=== PATIENT | female | born 1990 | race Caucasian/White ===

== ENCOUNTER 2016-11-27 12:47 | Emergency (ER) | payer OTHER ==
--- NOTE | ~2016-11-27 | CR21 ---
[facility] A Service of [facility] RADIOLOGY TEXT RESULTS PATIENT: YOVANA LOCKHART LOCATION: [facility] : [birth year] UNIT #: [id number] AGE: [address]: Kyle Lamb MD SEX: F ORDER DR: [id number] [facility] [address] [place], [place] [address] [id number] E MR#: [id number] Acc #: [id number] NAME: YOVANA LOCKHART : 1990 SEX: F STUDY DATE/TIME: 11/27/2016 12:17 UNIT: [facility] ROOM: STUDY DESCRIPTION: CR Ankle Min 3 Views Rt Attending Physician: Kyle Lamb M.D. Ordering Physician: Kyle Lamb M.D. Primary Care Physician: [facility], [facility] MEDICAL IMAGING REPORT This report is preliminary unless electronic signature is present EXAM Right ankle. HISTORY Twisting injury today with ankle pain. TECHNIQUE 3 views of the ankle were obtained. FINDINGS No definite fractures are seen. On the oblique view, there is a small barbra of calcium just below the distal tip of the fibula. This could reflect a small avulsion fracture. It could simply reflect a chronic ligamentous calcification from previous trauma. The ankle mortise is symmetric, and the dome of the talus is intact. IMPRESSION No definite acute fractures are seen. There is a small soft tissue calcification just under the tip of the fibula, seen on the oblique view only. It could potentially represent a small avulsion fracture versus chronic ligamentous calcification. Dictated by... Lane Yates M.D. THIS IS AN ELECTRONICALLY VERIFIED REPORT Lane Yates M.D. at 11/27/2016 6:01 PM RADHA/mingo TD: 11/27/2016 14:11 [facility] A Service of [facility] RADIOLOGY TEXT RESULTS PATIENT: YOVANA LOCKHART LOCATION: [facility] : [birth year] UNIT #: [id number] AGE: [address]: Kyle Lamb MD SEX: F ORDER DR: JOB #: [id number] MEDICAL IMAGING REPORT Page 1 of 1 COPY
--- NOTE | ~2016-11-27 | CR127 ---
[facility] A Service of [facility] RADIOLOGY TEXT RESULTS PATIENT: YOVANA LOCKHART LOCATION: [facility] : [birth year] UNIT #: [id number] AGE: [address]: Kyle Lamb MD SEX: F ORDER DR: [id number] [facility] [address] [place], [place] [address] [id number] E MR#: [id number] Acc #: [id number] NAME: YOVANA LOCKHART : 1990 SEX: F STUDY DATE/TIME: 11/27/2016 12:17 UNIT: [facility] ROOM: STUDY DESCRIPTION: CR Foot Complete Min 3 View Rt Attending Physician: Kyle Lamb M.D. Ordering Physician: Kyle Lamb M.D. Primary Care Physician: [facility], [facility] MEDICAL IMAGING REPORT This report is preliminary unless electronic signature is present EXAM Right foot HISTORY Foot pain, twisting injury earlier today. TECHNIQUE 3 views of the foot were obtained. FINDINGS The tarsal, metatarsal, and phalangeal elements are all anatomically normal in position and alignment. There are no articular defects. No fractures or radiopaque foreign bodies in the soft tissues are apparent. IMPRESSION Normal foot. Dictated by... Lane Yates M.D. THIS IS AN ELECTRONICALLY VERIFIED REPORT Lane Yates M.D. at 11/27/2016 6:01 PM RADHA/andrew TD: 11/27/2016 14:15 JOB #: [id number] MEDICAL IMAGING REPORT Page 1 of 1 COPY
[~2016-11-27 12:47] MED LIST: ANAPROX DS550 M1 PO; BACTRIM DS TABL1 TA1 PO; CLEOCIN HCL300 M1 PO; KEFLEX500 M1 PO; LORTAB 5/500 TA1 TA2 PO; MACROBID100 MG PO; PRENATAL1 TA1 PO
== END 2016-11-27 13:55 | disposition home or self-care (01) ==
LOC: CED 12:47
DX: S93.401A Sprain of unspecified ligament of right ankle, initial encounter (principal); S93.601A Unspecified sprain of right foot, initial encounter; F15.20 Other stimulant dependence, uncomplicated; I10 Essential (primary) hypertension; F17.200 Nicotine dependence, unspecified, uncomplicated; Z88.0 Allergy status to penicillin; W50.2XXA Accidental twist by another person, initial encounter; Y92.69 Other specified industrial and construction area as the place of occurrence of the external cause
CPT/HCPCS: 29540; 73610; 73630; 99283

== ENCOUNTER 2017-01-11 00:09 | Emergency (ER) | payer OTHER | END 2017-01-11 01:11 | disposition home or self-care (01) | LOC: CFTX 00:09 → CED 00:09 → CFTX 01:00 | DX: Z53.21 Procedure and treatment not carried out due to patient leaving prior to being seen by health care provider (principal) ==

== ENCOUNTER 2017-03-04 02:40 | Emergency (ER) | payer OTHER ==
--- NOTE | ~2017-03-04 | MR112 ---
[facility] A Service of [facility] & [facility] RADIOLOGY TEXT RESULTS PATIENT: YOVANA LOCKHART LOCATION: [facility] : 92 UNIT #: [id number] AGE: [address]: Juan Richter MD SEX: F ORDER DR: [id number] [facility] [address] [place], [place] [address] [id number] E MR#: [id number] Acc #: [id number] NAME: YOVANA LOCKHART. : 1990 SEX: F STUDY DATE/TIME: 03/04/2017 6:45 UNIT: [facility] ROOM: STUDY DESCRIPTION: MR Lumbar WWo Contrast Attending Physician: Juan Richter M.D. Ordering Physician: Enoc Topete P.A.-C. Primary Care Physician: [facility], [facility] MRI CENTER REPORT This report is preliminary unless electronic signature is present. EXAM MRI of the lumbar spine with and without contrast dated 03/04/2017 COMPARISON MRI of the thoracic spine with and without contrast dated 03/04/2017, CT abdomen and pelvis with contrast dated 09/07/2015. No dedicated prior thoracic spine studies. HISTORY Acute right leg pain since 17:00 hours on 03/03/2017. Patient is a meth user and has right leg pain with numbness. Stabbing pains in the bottom of the foot. Concern for epidural abscess. FINDINGS Multisequence multiplanar imaging of the lumbar spine was obtained with and without contrast. GFR measured greater than 60. 12 mL of MultiHance was administered intravenously. Vertebral body heights and alignment are preserved. Intervertebral disc heights are intact. Conus terminates at inferior L2 close to L2-3 level. There are no associated mass with a low-lying cord. Signal of the conus and cauda equina are within normal limits. Pre and paravertebral soft tissues do not demonstrate any significant abnormality. The inferior left kidney demonstrates a 1.0 cm nonenhancing cyst. No signs of acute infection or inflammation relating to the spine. No evidence of discitis, osteomyelitis, epidural or paravertebral abscess. There is no focal disc herniation, canal stenosis or neural foraminal narrowing. There is a spinous process cleft noted at L5. IMPRESSION 1. No acute abnormality including discitis, osteomyelitis or abscess. 2. No significant degenerative change in the disc or facet joints. 3. The cord appears to be low lying along the inferior aspect of the L2 STS. [facility] A Service of [facility] & [facility] RADIOLOGY TEXT RESULTS PATIENT: YOVANA LOCKHART LOCATION: [facility] : [birth year] UNIT #: [id number] AGE: [address]: Juan Richter MD SEX: F ORDER DR: close to L2-3 level. No obvious mass is noted in the region of the cauda equina to tether the cord. 4. There is a spinous process cleft at L5, benign. Dictated by... Niki Bethea M.D. THIS IS AN ELECTRONICALLY VERIFIED REPORT Niki Bethea M.D. at 03/05/2017 3:34 PM CPR/wenceslao TD: 03/04/2017 12:52 JOB #: [id number] MRI CENTER REPORT Page 1 of 1 COPY
--- NOTE | ~2017-03-04 | MR175 ---
[facility] A Service of [facility] RADIOLOGY TEXT RESULTS PATIENT: YOVANA LOCKHART LOCATION: [facility] : [birth year] UNIT #: [id number] AGE: [address]: Juan Richter MD SEX: F ORDER DR: [id number] [facility] [address] [place], [place] [address] [id number] E MR#: [id number] Acc #: [id number] NAME: YOVANA LOCKHART. : 1990 SEX: F STUDY DATE/TIME: 03/04/2017 7:11 UNIT: [facility] ROOM: STUDY DESCRIPTION: MR Thoracic WWo Contrast Attending Physician: Juan Richter M.D. Ordering Physician: Enoc Topete P.A.-C. Primary Care Physician: [facility], [facility] MRI CENTER REPORT This report is preliminary unless electronic signature is present. EXAM MRI of the thoracic spine with and without contrast, 03/04/[address] of the abdomen and pelvis with contrast, 09/07/2015 HISTORY Acute right leg pain since 17:00 hours on 03/03/2017. The patient is a meth user with right leg pain and numbness since yesterday. Stabbing pains in both feet. FINDINGS Multi-sequence, multiplanar imaging of the thoracic spine was obtained with and without contrast. 12 mL of MultiHance was administered intravenously. GFR measured greater than 60. Vertebral body heights and alignment are preserved. Intervertebral disc heights are intact. Cord demonstrates normal course, caliber and signal. Pre and paravertebral soft tissues do not demonstrate any significant abnormality. No evidence of discitis, osteomyelitis or abscess. No focal disc herniation, canal stenosis or neural foraminal narrowing. IMPRESSION 1. No significant acute abnormality like discitis, osteomyelitis or abscess. 2. No focal disc herniation, canal stenosis, neural foraminal narrowing or cord abnormality. Dictated by... Niki Bethea M.D. THIS IS AN ELECTRONICALLY VERIFIED REPORT Niki Bethea M.D. at 03/05/2017 3:34 [address] [facility] A Service of [facility] RADIOLOGY TEXT RESULTS PATIENT: YOVANA LOCKHART LOCATION: [facility] : [birth year] UNIT #: [id number] AGE: [address]: Juan Richter MD SEX: F ORDER DR: Nakia TD: 03/04/2017 12:56 JOB #: [id number] MRI CENTER REPORT Page 1 of 1 COPY
[2017-03-04 03:52] LABS: BASOPHIL% 0.2 % (0-2.5); EOSINOPHIL% 0.2 % (0.0-7.0); HEMATOCRIT 34.3 % (35.0-45.0); HEMOGLOBIN 10.8 gm/dL (12.0-16.0); LYMPHOCYTE# 3.1 X10e3 (1.0-3.5); MEAN CELL VOLUME 80.9 FL (83-96); MEAN CORPUSCULAR HEMOGLOBIN 25.5 PG (28-34); MEAN CORPUSCULAR HGB CONC 31.5 g/dL (30-36); MEAN PLATELET VOLUME 8.1 FL (6.5-11.5); MONOCYTE# 0.7 X10e3 (0-1.0); MONOCYTE% 5.4 % (3.0-12.0); NEUTROPHIL# 9.7 X10e3 (1.5-7.1); NEUTROPHIL% 71.2 % (40-75); PLATELET COUNT 252 X10e3 (140-420); RED BLOOD COUNT 4.24 X10e (3.90-5.30); RED CELL DISTRIBUTION WIDTH 15.6 % (11.0-15.5); WHITE BLOOD COUNT 13.6 X10e3 (4.0-10.5)
[2017-03-04 03:53] LABS: DIFF IND NO
[2017-03-04 04:17] LABS: ALBUMIN SERUM 3.4 g/dL (3.5-5.0); BILIRUBIN, DIRECT 0.4 mg/dL (0.0-0.2); BILIRUBIN,INDIRECT 1.1 mg/dL (0.0-0.9); BILIRUBIN,TOTAL 1.5 mg/dL (0.2-2.0); CALCIUM SERUM 8.4 mg/dL (8.4-10.2); CREATININE SERUM 0.5 mg/dL (0.6-1.4); GLOM FILT RATE Estimated 135.5 mL/min (>60); PROTEIN TOTAL SERUM 7.6 g/dL (6.0-8.3)
[2017-03-04 04:35] LABS: URINE SOURCE CLEAN CATCH
[2017-03-04 04:38] LABS: URINE APPEARANCE TURBID; URINE BLOOD 1+ (NEG); URINE COLOR DK YELLOW; URINE GLUCOSE NEG (NEG); URINE KETONE TRACE (NEG); URINE LEUKOCYTE ESTERASE 3+ (NEG); URINE NITRATE NEG (NEG); URINE PH 6.5 (5-8); URINE PROTEIN TRACE (NEG); URINE SPECIFIC GRAVITY 1.023 (1.003-1.035)
[2017-03-04 04:41] LABS: URINE SQUAMOUS EPITHELIAL CELL NONE SEEN /[HPF]; UWBCS1 AUWI 200-300 (0-5)
[2017-03-04 04:52] LABS: URINE BILIRUBIN NEG (NEG)
[2017-03-04 04:54] LABS: CULTURE INDICATED? YES
[2017-03-04 04:54] LABS: AMPHETAMINE NEG (NEG); BARBITURATES NEG (NEG); BENZODIAZEPINES NEG (NEG); COCAINE NEG (NEG); MARIJUANA NEG (NEG); OPIATES POS (NEG); TRICYCLIC ANTIDEPRESSANTS NEG (NEG); U METHADONE NEG (NEG)
== END 2017-03-04 10:16 | disposition home or self-care (01) ==
LOC: CED 02:40
PROVIDERS: Physician Assistant
DX: M54.16 Radiculopathy, lumbar region (principal); N39.0 Urinary tract infection, site not specified; J45.909 Unspecified asthma, uncomplicated; Z88.0 Allergy status to penicillin
CPT/HCPCS: 36415; 72157; 72158; 80048; 80076; 80307; 81003; 83605; 84703; 85025; 85652; 86140; 87040; 87077; 87086; 87088; 87186; 96361; 96365; 96366; 96367; 96375; 99284; A9577; J0696; J1170; J2270; J2405; J3370